=== PATIENT | female | born 2000 | race Caucasian/White ===

== ENCOUNTER 2019-04-15 18:32 | Emergency (ER) | payer BC ==
[~2019-04-15] VITALS: Ht 162.6 cm; Wt 108.9 kg
--- NOTE | 2019-04-15 18:43 | NUR ---
pt ambulated with steady gait, family at bedside. A&O x4. Here for abnormal labs (platelets 460). drawn at 04/08/19. breathing even and unlabored. denies any SOB. pulses palpable. cap refill <3 sec. denies any distress. fall precaution implemented per protocol. bed low, s/r up x2, call light within reach
[2019-04-15] MEDS ORDERED: ARIP10TA9 PO (18:44)
[2019-04-15] MEDS ORDERED: AMIT25TA24 PO (18:44)
[2019-04-15] MEDS ORDERED: ACET-2605 PO (18:44)
[2019-04-15] MEDS ORDERED: ONDA8TAB6 SL (18:44)
[2019-04-15] MEDS ORDERED: CHOL40002 PO (18:44)
[2019-04-15] MEDS ORDERED: MELA5TAB PO (18:45)
[2019-04-15] MEDS ORDERED: METO-357 PO (18:45)
[2019-04-15 18:57] LABS: *BILIRUBIN,URIN NEGATIVE (NEGATIVE); *BLOOD, URINE NEGATIVE (NEGATIVE); *COLOR,URINE YELLOW (YELLOW); *KETONES,URINE NEGATIVE (NEGATIVE); *UROBILINOGEN,URINE 0.2 E.U./dl (NORMAL); LEUKOCYTE ESTERASE ,URINE NEGATIVE (NEGATIVE); NITRITE, URINE NEGATIVE (NEGATIVE); PH,URINE 6.5 (5.0-8.0); UGLUCOSE NEGATIVE (NEGATIVE)
[2019-04-15 18:58] LABS: *URINE HCG, QUAL NEGATIVE (NEGATIVE)
[2019-04-15 18:59] LABS: *CLARITY,URINE HAZY (CLEAR)
[2019-04-15 19:04] LABS: BACTERIA,URINE MODERATE /HPF (NONE SEEN); MUCUS,URINE MODERATE /LPF (0-FEW); RBC,URINE 0-3 /HPF (0-3); SQUAMOUS EPITHELIAL CELL,UR MODERATE /HPF (NONE SEEN); WBC,URINE 0-3 /HPF (0-3)
--- NOTE | 2019-04-15 19:08 | NUR ---
Hand off report given to Radhames TALAMANTES
[2019-04-15] MEDS ORDERED: KETOROLAC TROMETHAMINE 60 MG INJ IM ONE ×2 (19:14→19:15)
[2019-04-15 19:31] LABS: BASOPHILS # (AUTO) 0.1 K/uL (0.0-8.0); BASOPHILS % (AUTO) 0.9 % (0.0-2.0); EOSINOPHILS # (AUTO) 0.6 K/uL (0.0-0.7); EOSINOPHILS % (AUTO) 4.3 % (0.0-7.0); HEMATOCRIT 34.1 % (31.2-41.9); HEMOGLOBIN 10.7 g/dL (10.9-14.3); LYMPHOCYTES % (AUTO) 31.1 % (20.5-74.5); MEAN CORPUSCULAR HEMOGLOBIN 22.8 uug (24.7-32.8); MEAN CORPUSCULAR HGB CONC 31 g/dL (32.3-35.6); MEAN CORPUSCULAR VOLUME 73.1 fL (75.5-95.3); MONOCYTES # (AUTO) 0.5 K/uL (2.0-10.0); MONOCYTES % (AUTO) 4.1 % (0-11); NEUTROPHILS # (AUTO) 7.7 K/uL (1.8-8.9); NEUTROPHILS % (AUTO) 59.6 % (31.5-64.5); PLATELET COUNT (AUTO) 424 K/uL (179-408); RED BLOOD CELL COUNT(AUTO) 4.67 MIL/uL (3.63-4.92)
[2019-04-15 19:34] LABS: CREATININE 0.9 mg/dL (0.6-1.3); POTASSIUM 4.2 mmol/L (3.5-5.1)
[2019-04-15 19:39] LABS: BILIRUBIN,DIRECT 0.1 mg/dL (0.0-0.2); BILIRUBIN,TOTAL 0.2 mg/dL (0.2-1.0); TOTAL PROTEIN, SERUM 7.9 g/dL (6.4-8.2)
--- NOTE | 2019-04-15 19:40 | NUR ---
Ultrasound at bedside.
--- NOTE | 2019-04-15 20:36 | NUR ---
Patient discharged to home in stable conditon. Written and verbal after care instructions given. Patient verbalizes understanding of instructions. Pt ambulated out of ER with steady gait, no acute signs of distress, VSS, all belongings taken.
[2019-04-15 20:37] VITALS: BP 114/67
== END 2019-04-15 20:38 | disposition home or self-care (01) ==
LOC: ER 18:35
DX: R10.9 Unspecified abdominal pain (principal); D72.829 Elevated white blood cell count, unspecified; D47.3 Essential (hemorrhagic) thrombocythemia; Z88.8 Allergy status to other drugs, medicaments and biological substances; Z79.899 Other long term (current) drug therapy
CPT/HCPCS: 36415; 76856; 80048; 80076; 81000; 81001; 83690; 84703; 85025; 87086; 96372; 99284; J1885; A4663

== ENCOUNTER 2019-04-25 23:15 | Emergency (ER) | payer BC ==
[~2019-04-25] VITALS: Ht 162.6 cm; Wt 108.9 kg
[~2019-04-25 23:15] MED LIST: ACET-2605 PO; AMIT25TA24 PO; ARIP10TA9 PO; CHOL40002 PO; MELA5TAB PO; METO-357 PO; ONDA8TAB6 SL
--- NOTE | 2019-04-25 23:41 | NUR ---
PATIENT BIB STAFF MEMBER FROM [facility] FOR C/O RUQ PAIN RADIATING RLQ FOR 10 DAYS. DENIES N/V AND DIARRHEA. PATIENT AAOX4. NO CARDIOVASCULAR CONCERN. RESPIRATORY EVEN AND UNLABORED.
--- NOTE | 2019-04-25 23:42 | NUR ---
Dr. Hou on bedside for MSE.
[2019-04-25] MEDS ORDERED: IBUPROFEN 800 MG TABLET PO ONE (23:45)
[2019-04-25] MEDS ORDERED: IBUPROFEN 800 MG TABLET ONE (23:48)
[2019-04-25] MEDS ORDERED: HYDROCODONE/APAP 5-325MG TABLET ONE (23:52)
[2019-04-26] LABS: BASOPHILS # (AUTO) 0.1 K/uL (0.0-8.0); BASOPHILS % (AUTO) 0.5 % (0.0-2.0); EOSINOPHILS # (AUTO) 0.6 K/uL (0.0-0.7); EOSINOPHILS % (AUTO) 5.1 % (0.0-7.0); HEMATOCRIT 33.9 % (31.2-41.9); HEMOGLOBIN 10.6 g/dL (10.9-14.3); LYMPHOCYTES # (AUTO) 3.7 K/uL (20.0-40.0); LYMPHOCYTES % (AUTO) 33.4 % (20.5-74.5); MEAN CORPUSCULAR HEMOGLOBIN 22.7 uug (24.7-32.8); MEAN CORPUSCULAR HGB CONC 31 g/dL (32.3-35.6); MEAN CORPUSCULAR VOLUME 72.7 fL (75.5-95.3); MONOCYTES # (AUTO) 0.6 K/uL (2.0-10.0); MONOCYTES % (AUTO) 5.7 % (0-11); NEUTROPHILS # (AUTO) 6.2 K/uL (1.8-8.9); NEUTROPHILS % (AUTO) 55.3 % (31.5-64.5); PLATELET COUNT (AUTO) 385 K/uL (179-408); RED BLOOD CELL COUNT(AUTO) 4.66 MIL/uL (3.63-4.92); WHITE BLOOD COUNT (AUTO) 11.2 K/uL (3.8-11.8)
[2019-04-26] MEDS ORDERED: HYDROCODONE/APAP 5-325MG TABLET PO ONE
[2019-04-26 00:07] LABS: CREATININE 0.9 mg/dL (0.6-1.3); POTASSIUM 4.1 mmol/L (3.5-5.1)
[2019-04-26 00:14] LABS: BILIRUBIN,TOTAL 0.4 mg/dL (0.2-1.0); TOTAL PROTEIN, SERUM 7.5 g/dL (6.4-8.2)
[2019-04-26 00:39] LABS: EOSINOPHILS % (MANUAL) 4 % (0-8); LYMPHOCYTES % (MANUAL) 38 % (38-48); MONOCYTES % (MANUAL) 2 % (2-10); NEUTROPHILS % (MANUAL) 56 % (40-55)
--- NOTE | 2019-04-26 00:47 | NUR ---
Patient discharged to [facility] accompanied by staff member in stable conditon. Written and verbal after care instructions given. Patient verbalizes understanding of instructions. Pt ambulated out of the ER with steady gait. All belongings with pt.
[2019-04-26 00:49] VITALS: BP 105/54
== END 2019-04-26 00:50 | disposition home or self-care (01) ==
LOC: ER 23:16
DX: R10.11 Right upper quadrant pain (principal); F32.9 Major depressive disorder, single episode, unspecified; F17.200 Nicotine dependence, unspecified, uncomplicated; Z88.8 Allergy status to other drugs, medicaments and biological substances; Z79.899 Other long term (current) drug therapy
CPT/HCPCS: 36415; 70030-TC; 83690; 85025; A4663

== ENCOUNTER 2019-07-25 01:11 | Emergency (ER) | payer BC ==
[~2019-07-25] VITALS: Ht 165.1 cm; Wt 136.1 kg
[2019-07-25] MEDS ORDERED: FERR-68 PO (01:27)
[2019-07-25] MEDS ORDERED: TRAZ-257 PO (01:27)
[2019-07-25] MEDS ORDERED: AZIT250T13 PO (01:27)
[2019-07-25] MEDS ORDERED: DIAZ10TA PO (01:27)
[2019-07-25] MEDS ORDERED: PROP80TA4 PO (01:27)
[2019-07-25] MEDS ORDERED: GABA600T12 PO (01:27)
[2019-07-25] MEDS ORDERED: NALT50TA PO (01:27)
[2019-07-25] MEDS ORDERED: VARE1TAB PO (01:27)
[2019-07-25] MEDS ORDERED: METF-440 PO (01:27)
--- NOTE | 2019-07-25 01:35 | NUR ---
DR:ESTEPHANIA AT B/S FOR MSE.
[2019-07-25] MEDS ORDERED: ALBUTEROL SULFATE 2.5 MG/3 ML NEBU NEB ONE (01:45)
[2019-07-25] MEDS ORDERED: ALBUTEROL SULFATE 2.5 MG/3 ML NEBU ONE (01:58)
--- NOTE | 2019-07-25 01:59 | NUR ---
RESPIRATORY THERAPIST AT B/S FOR VENTOLIN BREATHING TX. HOB UP .HR 88 SATURATION 100%.
[2019-07-25 02:40] VITALS: BP 115/75
--- NOTE | 2019-07-25 02:41 | NUR ---
Patient discharged to home in stable conditon. Written and verbal after care instructions given. Patient verbalizes understanding of instructions.V/S WNL .NO SOB SATURATION 98% TO 100%.RR 18 TO 20 .AMBULATORY WENT HOME WITH PATIENT SIGNIFICANT OTHERS WITH PRESCRIPTION AND ALL HER BELONGINGS .
== END 2019-07-25 02:47 | disposition home or self-care (01) ==
LOC: ER 01:14
DX: J98.01 Acute bronchospasm (principal); Z87.01 Personal history of pneumonia (recurrent)
CPT/HCPCS: 71045; 93005; A4663